=== PATIENT | female | born 1950 | race Caucasian/White ===

== ENCOUNTER 2017-03-21 10:57 | Emergency (ER) | payer MEDICARE ==
[~2017-03-21] VITALS: Wt 68.0 kg
[~2017-03-21 10:57] MED LIST: ANTIFUNGAL; ASPI-COR81 M1; ASPIRIN81 M1 PO; BACTRIM DS 8001 TA1 PO; BENADRYL; CLONIDINE0.1 MG; ENTERIC ASPIRI325 MG; IMDUR30 MG PO; ISOSORBIDE DINI30 MG PO; K-TAB ER8 MEQ PO; LISINOPRIL/HCTZ1 TAB; LISINOPRIL2.5 MG; LISINOPRIL5 MG PO; MAALOX 225 MG/360 ML PO; MICRO-K EXTENCA8 MEQ PO; Motrin,Rufen800 MG PO; NITROSTAT0.4 MG SL; NKHM; PEPCID20 MG PO; PLAVIX75 M1 PO; POTASSIUM20 MEQ; PRILOSEC; PRILOSEC20 M2 PO; PRILOSEC20 MG PO; SIMVASTATIN20 MG; SIMVASTATIN5 MG; SIMVASTATIN5 MG PO; VICODIN 500 MG-1 TAB PO
[2017-03-21 11:23] LABS: BASO % 0.3 % (0.0-1.0); EOS % 0.5 % (1.0-4.0); HEMATOCRIT 41.4 % (37.0-47.0); HEMOGLOBIN 14.2 g/dl (12.0-16.0); LYMPH # 1.5 10*3/uL (1.3-4.4); LYMPH % 20.7 % (27.0-41.0); MEAN CORPUSCULAR HGB 31.6 pg (27.0-31.0); MEAN CORPUSCULAR HGB CONC 34.3 g/dl (33.0-37.0); MEAN PLATELET VOLUME 10.3 fl (9.6-12.3); MONO # 0.6 10*3/uL (0.1-1.0); MONO % 7.5 % (3.0-9.0); NEUT # 5.2 10*3/uL (2.3-7.9); NEUT % 70.7 % (47.0-73.0); PLATELET COUNT AUTOMATED 267 10*3/uL (130-400); RED CELL DISTRI WIDTH 12.3 % (0-14.5); WHITE BLOOD COUNT 7.4 10*3/uL (4.8-10.8)
[2017-03-21 11:39] LABS: ALBUMIN 3.8 gm/dl (3.1-4.5); ALKALINE PHOSPHATASE 98 U/L (45-117); BUN 14 mg/dl (7-24); CHLORIDE 109 mmol/L (98-107); CREATININE 0.74 mg/dL (0.55-1.02); LIPASE 137 U/L (73-393); POTASSIUM 3.9 mmol/L (3.5-5.1); SGOT/AST 31 IU/L (3-35); SGPT/ALT 27 U/L (12-78); SODIUM 142 mmol/L (136-145); TOTAL PROTEIN 6.9 gm/dL (6.4-8.2)
[2017-03-21 11:48] LABS: BILIRUBIN NEGATIVE (NEGATIVE); BLOOD TRACE-LYSED (NEGATIVE); CLARITY SL CLOUDY (CLEAR); COLOR YELLOW (YELLOW); GLUCOSE NEGATIVE (NEGATIVE); KETONE NEGATIVE (NEGATIVE); LEUKO ESTERASE TRACE (NEGATIVE); NITRITE POSITIVE (NEGATIVE); SPECIFIC GRAVITY <= 1.005 (1.005-1.030); UROBILINOGEN 0.2 E.U./dl (0.2-1.0)
[2017-03-21 11:56] LABS: BACTERIA 2+
[2017-03-21 12:16] VITALS: BP 158/74
[2017-03-21] MEDS ORDERED: ZOFRAN ODT4 MG SL (12:23)
[2017-03-21] MEDS ORDERED: AMINOPHYLLIN200 MG PO (12:23)
== END 2017-03-21 12:44 | disposition home or self-care (01) ==
LOC: ED 10:57
PROVIDERS: Physician Assistant
DX: N30.00 Acute cystitis without hematuria (principal); K52.9 Noninfective gastroenteritis and colitis, unspecified; F17.200 Nicotine dependence, unspecified, uncomplicated; Z98.890 Other specified postprocedural states; Z88.8 Allergy status to other drugs, medicaments and biological substances; Z79.82 Long term (current) use of aspirin; Z79.899 Other long term (current) drug therapy; Z90.49 Acquired absence of other specified parts of digestive tract

== ENCOUNTER 2017-12-22 16:38 | Emergency (ER) | payer OTHER ==
[~2017-12-22] VITALS: Ht 165.1 cm; Wt 68.0 kg
[2017-12-22 16:38] VITALS: BP 170/68
[~2017-12-22 16:38] MED LIST changes: +AMINOPHYLLIN200 MG PO; +ZOFRAN ODT4 MG SL
[2017-12-22] MEDS ORDERED: CYCLOBENZAPRINE10 MG PO (18:02)
[2017-12-22] MEDS ORDERED: MEDROL DOSEPAK4 MG PO (18:02)
== END 2017-12-22 18:15 | disposition home or self-care (01) ==
LOC: ED 16:38
DX: M54.2 Cervicalgia (principal); M43.6 Torticollis; F17.200 Nicotine dependence, unspecified, uncomplicated; Z88.8 Allergy status to other drugs, medicaments and biological substances; Z79.82 Long term (current) use of aspirin; Z79.899 Other long term (current) drug therapy

== ENCOUNTER 2018-03-12 17:15 | Emergency (ER) | payer OTHER ==
[2018-03-12 17:15] VITALS: BP 160/81
[~2018-03-12 17:15] MED LIST changes: +CYCLOBENZAPRINE10 MG PO; +MEDROL DOSEPAK4 MG PO
[2018-03-12 18:08] LABS: BASO % 0.3 % (0.0-1.0); EOS % 0.3 % (1.0-4.0); HEMATOCRIT 43.2 % (37.0-47.0); HEMOGLOBIN 14.8 g/dl (12.0-16.0); LYMPH # 1.3 10*3/uL (1.3-4.4); LYMPH % 18.5 % (27.0-41.0); MEAN CELL VOLUME 93.5 fl (81.0-99.0); MEAN CORPUSCULAR HGB CONC 34.3 g/dl (33.0-37.0); MEAN PLATELET VOLUME 10.7 fl (9.6-12.3); MONO # 0.4 10*3/uL (0.1-1.0); MONO % 5.1 % (3.0-9.0); NEUT # 5.2 10*3/uL (2.3-7.9); NEUT % 75.5 % (47.0-73.0); PLATELET COUNT AUTOMATED 254 10*3/uL (130-400); RED BLOOD COUNT 4.62 10*6/uL (4.10-5.10); RED CELL DISTRI WIDTH 12.7 % (0-14.5); WHITE BLOOD COUNT 6.9 10*3/uL (4.8-10.8)
[2018-03-12 18:18] LABS: ALBUMIN 3.3 gm/dl (3.1-4.5); ALKALINE PHOSPHATASE 87 U/L (45-117); BUN 18 mg/dl (7-24); CHLORIDE 109 mmol/L (98-107); CREATININE 0.73 mg/dL (0.55-1.02); LIPASE 68 U/L (73-393); POTASSIUM 3.1 mmol/L (3.5-5.1); SGOT/AST 16 IU/L (3-35); SGPT/ALT 22 U/L (12-78); SODIUM 141 mmol/L (136-145); TOTAL PROTEIN 6.4 gm/dL (6.4-8.2)
[2018-03-12 18:49] LABS: BILIRUBIN NEGATIVE (NEGATIVE); BLOOD TRACE-INTACT (NEGATIVE); CLARITY CLOUDY (CLEAR); COLOR YELLOW (YELLOW); GLUCOSE NEGATIVE (NEGATIVE); KETONE NEGATIVE (NEGATIVE); LEUKO ESTERASE 2+ (NEGATIVE); NITRITE POSITIVE (NEGATIVE); SPECIFIC GRAVITY 1.025 (1.005-1.030); UROBILINOGEN 0.2 E.U./dl (0.2-1.0)
[2018-03-12 18:56] LABS: BACTERIA 4+; MUCOUS TRACE; WBC TNTC wbc/hpf (0-5)
[2018-03-12] MEDS ORDERED: AMINOPHYLLIN200 MG PO (19:04)
[2018-03-12] MEDS ORDERED: ZOFRAN4 MG PO (19:04)
== END 2018-03-12 19:06 | disposition home or self-care (01) ==
LOC: ED 17:15
PROVIDERS: Nurse Practitioner Family
DX: A08.4 Viral intestinal infection, unspecified (principal); N39.0 Urinary tract infection, site not specified; I10 Essential (primary) hypertension; Z88.8 Allergy status to other drugs, medicaments and biological substances; Z79.899 Other long term (current) drug therapy; Z90.710 Acquired absence of both cervix and uterus

== ENCOUNTER 2019-02-10 08:17 | Inpatient (IN) | payer OTHER ==
[~2019-02-10] VITALS: Ht 165.1 cm; Wt 74.6 kg
[~2019-02-10 08:17] MED LIST changes: +ZOFRAN4 MG PO
[2019-02-10 08:19] VITALS: BP 167/77
[2019-02-10 09:21] LABS: BASO % 0.3 % (0.0-1.0); EOS # 0.1 10*3/uL (0.0-0.4); EOS % 1.6 % (1.0-4.0); HEMATOCRIT 34.5 % (37.0-47.0); HEMOGLOBIN 11.2 g/dl (12.0-16.0); LYMPH # 0.7 10*3/uL (1.3-4.4); LYMPH % 8.8 % (27.0-41.0); MEAN CELL VOLUME 89.4 fl (81.0-99.0); MEAN CORPUSCULAR HGB CONC 32.5 g/dl (33.0-37.0); MEAN PLATELET VOLUME 10.7 fl (9.6-12.3); MONO # 0.4 10*3/uL (0.1-1.0); MONO % 4.9 % (3.0-9.0); NEUT # 6.4 10*3/uL (2.3-7.9); NEUT % 84.1 % (47.0-73.0); PLATELET COUNT AUTOMATED 266 10*3/uL (130-400); RED BLOOD COUNT 3.86 10*6/uL (4.10-5.10); RED CELL DISTRI WIDTH 14.2 % (0-14.5); WHITE BLOOD COUNT 7.6 10*3/uL (4.8-10.8)
--- NOTE | 2019-02-10 09:31 | NUR ---
PT IS DRINKING WATER WITHOUT VOMITING. ATTEMPTING TO PROVIDE A URINE SAMPLE. ASTRID COMER
[2019-02-10 09:36] LABS: ACT PARTIAL THROMBO TIME 25.2 SECONDS (20.0-32.1)
[2019-02-10 09:38] LABS: ALBUMIN 3.3 gm/dl (3.1-4.5); ALKALINE PHOSPHATASE 87 U/L (45-117); BUN 15 mg/dl (7-24); CHLORIDE 113 mmol/L (98-107); LIPASE 69 U/L (73-393); POTASSIUM 3.4 mmol/L (3.5-5.1); SGOT/AST 21 IU/L (3-35); SGPT/ALT 17 U/L (12-78); SODIUM 142 mmol/L (136-145); TOTAL PROTEIN 6.5 gm/dL (6.4-8.2)
--- NOTE | 2019-02-10 11:59 | NUR ---
THERE HAS BEEN NO VOMITING SINCE PT ARRIVED TO ED. SHE REMAINS AWAKE AND ALERT. BM X1 SINCE ED ARRIVAL. ASTRID COMER
--- NOTE | 2019-02-10 12:52 | NUR ---
NO FURTHER BOWEL MOVEMENTS OR EMESIS. THERE HAS BEEN NO CO ABDOMINAL PAIN. IV FLUID IS COMPLETE. ASTRID COMER
--- NOTE | 2019-02-10 13:20 | NUR ---
Time: 0 A 68 year old FEMALE admitted to 5E under services of SHUKRI FORD DO. Pt. arrived via bed from ER. Chief complaint: NAUSEA/VOMITING/DIARRHEA/ABDOMINAL PAIN. SUSANNE KING
[2019-02-10 13:30] VITALS: BP 145/62
[2019-02-10] MEDS ORDERED: BENADRYL ALLERG25 M5 PO (13:48)
[2019-02-10] MEDS ORDERED: GARLIC1 EAC1 PO (13:48)
[2019-02-10] MEDS ORDERED: IBU-200200 MG PO (13:49)
[2019-02-10] MEDS ORDERED: CO Q-1010 M2 PO (13:49)
--- NOTE | 2019-02-10 14:22 | NUR ---
NOITIFIED DR. HERRERA THAT PATIENT TAKES BENADRYL 25MG EVERYDAY FOR ALLERGIES "TO BREATH" AND IBUPROFEN 800MG TID IF SHE NEEDS IT. HE STATED HE HELD THE MOTRIN, BUT 25MG OF BENADRYL IS FINE
[2019-02-10 15:35] LABS: BILIRUBIN NEGATIVE (NEGATIVE); BLOOD TRACE-INTACT (NEGATIVE); CLARITY SL CLOUDY (CLEAR); COLOR YELLOW (YELLOW); GLUCOSE NEGATIVE (NEGATIVE); KETONE NEGATIVE (NEGATIVE); LEUKO ESTERASE NEGATIVE (NEGATIVE); NITRITE POSITIVE (NEGATIVE); SPECIFIC GRAVITY 1.015 (1.005-1.030); UROBILINOGEN 0.2 E.U./dl (0.2-1.0)
[2019-02-10 15:41] LABS: BACTERIA 2+; MUCOUS 1+; RBC 0-2 rbc/hpf (0-2)
[2019-02-10 16:00] VITALS: BP 124/66
[2019-02-10 20:00] VITALS: BP 154/68
[2019-02-11] VITALS: BP 150/64
--- NOTE | 2019-02-11 02:58 | NUR ---
24 HOUR CHART CHECK COMPLETED
[2019-02-11 05:59] LABS: BASO % 0.3 % (0.0-1.0); EOS # 0.1 10*3/uL (0.0-0.4); EOS % 1.5 % (1.0-4.0); HEMATOCRIT 32.4 % (37.0-47.0); HEMOGLOBIN 10.1 g/dl (12.0-16.0); LYMPH # 1.6 10*3/uL (1.3-4.4); LYMPH % 49.8 % (27.0-41.0); MEAN CELL VOLUME 90.3 fl (81.0-99.0); MEAN CORPUSCULAR HGB 28.1 pg (27.0-31.0); MEAN CORPUSCULAR HGB CONC 31.2 g/dl (33.0-37.0); MEAN PLATELET VOLUME 10.8 fl (9.6-12.3); MONO # 0.5 10*3/uL (0.1-1.0); MONO % 15.2 % (3.0-9.0); NEUT # 1.1 10*3/uL (2.3-7.9); NEUT % 33.2 % (47.0-73.0); PLATELET COUNT AUTOMATED 232 10*3/uL (130-400); RED BLOOD COUNT 3.59 10*6/uL (4.10-5.10); RED CELL DISTRI WIDTH 14.1 % (0-14.5); WHITE BLOOD COUNT 3.2 10*3/uL (4.8-10.8)
[2019-02-11 06:08] LABS: ACT PARTIAL THROMBO TIME 27.5 SECONDS (20.0-32.1)
[2019-02-11 06:17] LABS: ALBUMIN 2.9 gm/dl (3.1-4.5); ALKALINE PHOSPHATASE 79 U/L (45-117); BUN 7 mg/dl (7-24); CHLORIDE 116 mmol/L (98-107); CHOLESTEROL 141 mg/dL (<200); CREATININE 0.64 mg/dL (0.55-1.02); HDL CHOLESTEROL 36 mg/dl (40-60); LDL CHOLESTEROL 87 mg/dL (9-159); PHOSPHOROUS 2.7 mg/dL (2.5-4.9); POTASSIUM 3.3 mmol/L (3.5-5.1); SGOT/AST 17 IU/L (3-35); SGPT/ALT 17 U/L (12-78); SODIUM 141 mmol/L (136-145); TOTAL PROTEIN 5.6 gm/dL (6.4-8.2); TRIGLYCERIDES 90 mg/dl (<150); VLDL CHOLESTEROL 18 mg/dL (6-40)
[2019-02-11 06:23] LABS: FREE T4 0.81 ng/dl (0.76-1.46)
--- NOTE | 2019-02-11 07:53 | NUR ---
VITALS STABLE. VIOLET. A&OX3. EQUAL SUPERVISOR GROUNDS. PLEASANT. HEART SOUNDS NORMAL. LUNGS CLEAR THROUGHOUT. ACTIVE BS X4, NON TENDER, NON DISTENDED. SKIN PINK WARM AND DRY, <3 CAP REFILL, SKIN TURGUR NON TENTING. PT STATED "STOOL IS MORE FORMED TODAY". IV PATENT IN LEFT HAND, DRESSING DRY AND INTACT, NO REDNESS OR SWELLING AT THE SITE. PT HAS NO COMPLAINTS OF PAIN AT THIS TIME. WILL CONTINUE TO ASSESS. PRASHANTH JIMENEZCC
[2019-02-11 08:00] VITALS: BP 156/78
--- NOTE | 2019-02-11 08:06 | NUR ---
pt sitting up in bed. no distress noted. will monitor
[2019-02-11 08:32] LABS: VITAMIN D, 25-HYDROXY 20.7 ng/mL (30-100)
--- NOTE | 2019-02-11 09:55 | NUR ---
PT RESTING QUIETLY WITH EYES CLOSED. WILL CONTINUE TO ASSESS. CHRISTINE FRANK, ANGELICANRCC
[2019-02-11] MEDS ORDERED: CIPRO500 MG PO (10:16)
--- NOTE | 2019-02-11 10:53 | NUR ---
Discharge instructions reviewed with patient/family. Patient receptive and verbalizes understanding. Follow-up care arranged. Written instructions given to patient/family. [place] removed. Discharged via wheelchair to taxi in ER lot. Condition stable. RHINA Aguilar KATHY P
== END 2019-02-11 10:53 | disposition home or self-care (01) | DRG 392 ==
LOC: ED 08:17 → EDHOLD 12:36 → 5E 12:48
PROVIDERS: Emergency Medicine; Hospitalist; ADMIT Internal Medicine
DX: R19.7 Diarrhea, unspecified (principal); N39.0 Urinary tract infection, site not specified; D64.9 Anemia, unspecified; E87.6 Hypokalemia; E87.8 Other disorders of electrolyte and fluid balance, not elsewhere classified; I10 Essential (primary) hypertension; Z96.641 Presence of right artificial hip joint; E78.5 Hyperlipidemia, unspecified; K21.9 Gastro-esophageal reflux disease without esophagitis; F17.200 Nicotine dependence, unspecified, uncomplicated; I25.10 Atherosclerotic heart disease of native coronary artery without angina pectoris; Z86.73 Personal history of transient ischemic attack (TIA), and cerebral infarction without residual deficits; Z88.8 Allergy status to other drugs, medicaments and biological substances; Z87.440 Personal history of urinary (tract) infections; Z98.891 History of uterine scar from previous surgery; Z83.3 Family history of diabetes mellitus; Z82.49 Family history of ischemic heart disease and other diseases of the circulatory system; Z82.3 Family history of stroke; I25.2 Old myocardial infarction; Z79.899 Other long term (current) drug therapy

== ENCOUNTER 2019-02-18 06:15 | Inpatient (IN) | payer OTHER ==
[2019-02-18] VITALS (10 sets, daily range): BP systolic 124–170; BP diastolic 58–107
[~2019-02-18] VITALS: Ht 165.1 cm; Wt 71.9 kg
[~2019-02-18 06:15] MED LIST changes: +BENADRYL ALLERG25 M5 PO; +CIPRO500 MG PO; +CO Q-1010 M2 PO; +GARLIC1 EAC1 PO; +IBU-200200 MG PO
[2019-02-18 06:45] LABS: BASO % 0.4 % (0.0-1.0); EOS # 0.1 10*3/uL (0.0-0.4); EOS % 1.2 % (1.0-4.0); HEMATOCRIT 37.1 % (37.0-47.0); HEMOGLOBIN 12.2 g/dl (12.0-16.0); LYMPH # 3.8 10*3/uL (1.3-4.4); LYMPH % 37.8 % (27.0-41.0); MEAN CELL VOLUME 86.7 fl (81.0-99.0); MEAN CORPUSCULAR HGB 28.5 pg (27.0-31.0); MEAN CORPUSCULAR HGB CONC 32.9 g/dl (33.0-37.0); MEAN PLATELET VOLUME 11.2 fl (9.6-12.3); MONO # 0.6 10*3/uL (0.1-1.0); MONO % 6.2 % (3.0-9.0); NEUT # 5.4 10*3/uL (2.3-7.9); NEUT % 54.2 % (47.0-73.0); PLATELET COUNT AUTOMATED 311 10*3/uL (130-400); RED BLOOD COUNT 4.28 10*6/uL (4.10-5.10); RED CELL DISTRI WIDTH 13.9 % (0-14.5)
[2019-02-18 06:50] LABS: ACT PARTIAL THROMBO TIME 25.1 SECONDS (20.0-32.1)
[2019-02-18 07:01] LABS: ALBUMIN 3.6 gm/dl (3.1-4.5); ALKALINE PHOSPHATASE 102 U/L (45-117); BUN 9 mg/dl (7-24); CHLORIDE 111 mmol/L (98-107); CREATININE 0.71 mg/dL (0.55-1.02); POTASSIUM 3.2 mmol/L (3.5-5.1); SGOT/AST 19 IU/L (3-35); SGPT/ALT 23 U/L (12-78); SODIUM 141 mmol/L (136-145); TOTAL PROTEIN 7.1 gm/dL (6.4-8.2)
[2019-02-18 07:03] LABS: TROPONIN I 0.072 ng/ml (<0.045)
--- NOTE | 2019-02-18 08:46 | NUR ---
ASSISTED TO BEDSIDE COMMODE.
--- NOTE | 2019-02-18 09:18 | NUR ---
TROP 0.161 DR REILLY NOTIFIED
--- NOTE | 2019-02-18 10:15 | NUR ---
CCA 68, admitted to , under the services of SARAH Cortes DO with a diagnosis of CHEST PAIN. Chief complaint is CHEST PAIN. Patient arrived via ambulance from ER. Monitor applied. Initial assessment completed. Vital signs taken and recorded. SARAH CORTES DO notified of admission to the unit. Orders received. See assessment for past medical history, medications and allergies. Patient and/or family oriented to unit. [address] visitation policy reviewed. Clothing/patient valuable form completed. LUANN DUKES.
--- NOTE | 2019-02-18 12:00 | NUR ---
CALLED REGARDING ADMISSION ORDERS AND WILL BE IN TO SEE THE PATIENT.
--- NOTE | 2019-02-18 12:42 | NUR ---
Dr. Salazar notified of elevated troponin of 2.29. States this pt is not on his list. But he would accept consult. Spoke with Dr. Downs and order received. Pt does not currently see any marriage counselor.
--- NOTE | 2019-02-18 12:50 | NUR ---
Attempted to call EKG for stat EKG. No answer at this time.
--- NOTE | 2019-02-18 13:07 | NUR ---
WC was able to reach EKG for stat EKG.
--- NOTE | 2019-02-18 13:26 | NUR ---
ON FLOOR AND WILL BE IN TO SEE THE PATIENT.
--- NOTE | 2019-02-18 16:09 | NUR ---
ASSUMED CARE OF PATIENT. PT STATES NO NEEDS AT THIS TIME
--- NOTE | 2019-02-18 19:17 | NUR ---
ASSUMED CARE OF PT AT THIS TIME. PT AWAKE IN BED. DENIES ANY CP. NO OTHER COMPLAINTS VOICED. WILL MONITOR. CALL LIGHT IN REACH.
--- NOTE | 2019-02-18 20:14 | NUR ---
HERE TO REVIEW EKGs. DISCUSSED PT'S ELEVATED TROPONINS. PT DENIES CP AT PRESENT TIME. PER , POSSIBLE TRANSFER FOR HEART CATH. WILL CONTINUE TO MONITOR PT.
--- NOTE | 2019-02-18 20:30 | NUR ---
SHIFT ASSESSMENT COMPLETE AT THIS TIME. PT STATES "A HEART DOCTOR" WAS IN TODAY AND SAID SHE WOULD BE TRANSFERRED TO [facility] FOR A HEART CATH. PATIENT STATES "I AIN'T SUZANNE." RN TRIED TO EDUCATE PT AND ENCOURAGE PT TO ACCEPT CARDIOLOGY'S RECOMMENDATIONS. PT STATES "I'LL HAVE A STRESS TEST HERE, BUT I'M NOT GOING TO [facility] FOR A HEART CATH."
--- NOTE | 2019-02-18 21:54 | NUR ---
PT IS C/O "A GAS BUBBLE" SITTING AT THE "TOP OF HER BELLY." RN ASKED PT TO FURTHER DESCRIBE PAIN/DISCOMFORT. PATIENT REPLIED QUICKLY "I DON'T NEED TO EXPLAIN IT JUST GIVE ME SOMETHING FOR GAS." STATES SHE WANTS "GAS-X, TUMS, WHATEVER." RN ASKED PT IF IT FEELS LIKE CHEST PAIN. PT REPLIED "IT'S NOT CHEST PAIN, IT'S GAS. IT FEELS NOTHING LIKE IT DID LAST NIGHT/THIS MORNING." NOTIFIED. NEW ORDERS RECEIVED. ALSO AWARE THAT 2200 DOSE OF METOPROLOL 12.5MG HELD DUE TO HR IN LOW 50S PER CM.
--- NOTE | 2019-02-18 22:08 | NUR ---
PT MEDICATED WITH PO TUMS FOR C/O GAS & INDIGESTION. WILL MONITOR EFFECTIVENESS. CALL LIGHT IN REACH.
--- NOTE | 2019-02-18 23:16 | NUR ---
EARLIER MEDICATIONS APPEAR EFFECTIVE. PT SLEEPING IN BED. RESPIRATIONS EASY. NO S/S OF DISTRESS NOTED. WILL MONITOR. CALL LIGHT LEFT IN REACH.
[2019-02-18 23:18] LABS: BILIRUBIN NEGATIVE (NEGATIVE); BLOOD NEGATIVE (NEGATIVE); CLARITY SL CLOUDY (CLEAR); COLOR YELLOW (YELLOW); GLUCOSE NEGATIVE (NEGATIVE); KETONE NEGATIVE (NEGATIVE); LEUKO ESTERASE TRACE (NEGATIVE); NITRITE NEGATIVE (NEGATIVE); PH 6.5 (5.0-9.0); UROBILINOGEN 0.2 E.U./dl (0.2-1.0)
[2019-02-18 23:28] LABS: BACTERIA 1+; MUCOUS 1+
[2019-02-19] VITALS (12 sets, daily range): BP systolic 107–164; BP diastolic 50–88
--- NOTE | 2019-02-19 02:00 | NUR ---
PT ASLEEP IN BED. RESPIRATIONS EASY. NO S/S OF DISTRESS NOTED. WILL MONITOR. CALL LIGHT IN REACH.
--- NOTE | 2019-02-19 03:46 | NUR ---
PT C/O "GAS BUBBLE" AGAIN. PO TUMS ADMINISTERED PER PRN ORDER. BP ELEVATED AT 164/80 MANUALLY. NOTIFIED. EKG ORDERED. REVIEWED. PT DENIES ANY NEW/WORSENING SYMPTOMS. WILL CONTINUE TO MONITOR. CALL LIGHT IN REACH.
--- NOTE | 2019-02-19 04:06 | NUR ---
EARLIER MEDICATIONS APPEAR EFFECTIVE. PT ASLEEP IN BED. RESPIRATIONS EASY. NO S/S OF DISTRESS NOTED. WILL MONITOR. CALL LIGHT IN REACH.
[2019-02-19 06:41] LABS: BASO % 0.4 % (0.0-1.0); EOS % 0.4 % (1.0-4.0); HEMATOCRIT 33.5 % (37.0-47.0); HEMOGLOBIN 10.7 g/dl (12.0-16.0); LYMPH # 3.1 10*3/uL (1.3-4.4); LYMPH % 32.9 % (27.0-41.0); MEAN CORPUSCULAR HGB 27.8 pg (27.0-31.0); MEAN CORPUSCULAR HGB CONC 31.9 g/dl (33.0-37.0); MEAN PLATELET VOLUME 11.3 fl (9.6-12.3); MONO # 0.8 10*3/uL (0.1-1.0); MONO % 8.1 % (3.0-9.0); NEUT # 5.4 10*3/uL (2.3-7.9); PLATELET COUNT AUTOMATED 297 10*3/uL (130-400); RED BLOOD COUNT 3.85 10*6/uL (4.10-5.10); RED CELL DISTRI WIDTH 14.1 % (0-14.5); WHITE BLOOD COUNT 9.3 10*3/uL (4.8-10.8)
[2019-02-19 06:54] LABS: ALBUMIN 3.2 gm/dl (3.1-4.5); BUN 13 mg/dl (7-24); CHLORIDE 111 mmol/L (98-107); POTASSIUM 3.9 mmol/L (3.5-5.1); SODIUM 141 mmol/L (136-145)
[2019-02-19 07:03] LABS: ALKALINE PHOSPHATASE 104 U/L (45-117); CREATININE 0.73 mg/dL (0.55-1.02); PHOSPHOROUS 2.7 mg/dL (2.5-4.9); SGOT/AST 118 IU/L (3-35); SGPT/ALT 61 U/L (12-78); TOTAL PROTEIN 6.3 gm/dL (6.4-8.2)
--- NOTE | 2019-02-19 07:40 | NUR ---
PT RESTING IN BED WITH EYES CLOSED, AWAKENS EASILY. RESP-EASY AND REGULAR. CALL LIGHT IN REACH. SEE SHIFT ASSESSMENT.
--- NOTE | 2019-02-19 09:00 | NUR ---
Bit Tripoler in to talk to patient. Patient states lives at home with son. There are few steps in the home. Physician: amirah Pharmacy: [facility] [place] [facility]: none Patient's level of ADLs: INDEPENDENT Patient has working utilities: all working DME: none Follow-up physician's appointment after d/c: will be made by hospitalist nurse director upon discharge Does patient want to access PORTAL?: no Discharge plan discussed with patient, she lives at home with her son, she is independent in adls and ambulation, she states she will be returning home when medically stable and denies any home needs. KAMERON ESPINOSA
--- NOTE | 2019-02-19 09:00 | NUR ---
PT C/O EPIGASTRIC PAIN, GAS BUBBLES PER PT. ALSO C/O CONSTIPATION. MEDICATED WITH DUCOLAX PO AND TUMS PER EMAR. HR-44-52. CALL LIGHT IN REACH. WILL CON'T TO MONITOR.L
--- NOTE | 2019-02-19 09:05 | NUR ---
CALLED DR. HU MADE AWARE PT BP156/84 WITH HR-44-52. ALSO C/O GAS BUBBLES AND CONSTIPATION.
--- NOTE | 2019-02-19 09:10 | NUR ---
CALLED DR. HU AGAIN REGARDING PT C/O CHEST PAIN AT THIS TIME. STAT EKG ORDERED. DR. HU CAME TO FLOOR. BP 144/72, HR-40'S-50'S. OXYGEN APPLIED.
--- NOTE | 2019-02-19 09:14 | NUR ---
DR. HU CALLED DR. ORNELAS MADE AWARE CHEST PAIN, TRANSFER TO ICU.
--- NOTE | 2019-02-19 09:25 | NUR ---
PT TRANSFERRED TO ICU REPORT GIVEN TO RN. OXYGEN IN USE.
--- NOTE | 2019-02-19 09:30 | NUR ---
PATIENT RECEIVED FROM FOR MIDSTERNAL CHEST PAIN. PATIENT KEEPS SAYING "OH MY GOD". BLOOD PRESSURE 156/84. POX 98% RA. NITRO GTT STARTED.
--- NOTE | 2019-02-19 09:48 | NUR ---
PATIENT CONTINUES TO C/O CHEST PAIN. NITRO GTT INCREASED TO 20MIC.
--- NOTE | 2019-02-19 09:50 | NUR ---
PATIENT C/O NAUSEA. MEDICATED WITH ZOFRAN PER PRN ORDER. WILL CONTINUE TO MONITOR.
--- NOTE | 2019-02-19 10:00 | NUR ---
patient condition worsened, she was transferred to CCU and will be transferred to [facility] for heart cath,
--- NOTE | 2019-02-19 10:05 | NUR ---
PATIENT CONTINUES TO C/O MIDSTERNAL CP. RATE 12/13. NITRO GTT INCREASED TO 30MIC.
--- NOTE | 2019-02-19 10:27 | NUR ---
PATIENT CONTINUES TO C/O CHEST PAIN. RATE 10/10 ON PAIN SCALE. PATIENT MOANING. NITRO GTT INCREASED TO 40MIC.
--- NOTE | 2019-02-19 10:36 | NUR ---
PATIENT CONTINUES TO C/O CHEST PAIN. RATE 10/10 ON PAIN SCALE. NITRO GTT INCREASED TO 50MIC.
[2019-02-19] MEDS ORDERED: AMLODIPINE BESYL5 MG PO (10:37)
[2019-02-19] MEDS ORDERED: ATORVASTATIN CA40 M1 PO (10:37)
[2019-02-19] MEDS ORDERED: ASPIRIN ADULT L81 M2 PO (10:37)
[2019-02-19] MEDS ORDERED: LOPRESSOR25 MG PO (10:37)
--- NOTE | 2019-02-19 10:57 | NUR ---
ECHO CANCELLED, BEING TRANSFERRED OUT.
--- NOTE | 2019-02-19 11:07 | NUR ---
PATIENT CONTINUES TO MOAN IN PAIN. MIDSTERNAL CHEST PAIN CONTINUING. AT BEDSIDE. NEW ORDER RECEIVED TO START IVF OF NS AT 50CC/HR AND GIVE THE MORPHINE. MEDICATED WITH MORPHINE SULFATE 2MG IV PER PRN ORDER. WILL CONTINUE TO MONITOR.
--- NOTE | 2019-02-19 11:30 | NUR ---
PATIENT RESTING WITH EYES CLOSED AT THIS TIME.
--- NOTE | 2019-02-19 11:48 | NUR ---
[facility] HERE TO TRANSFER PATIENT TO [facility] TE[facility]. ALL PERSONAL BELONGINGS SENT WITH PATIENT. PATIENT REQUESTED TO LEAVE HER PHONE HERE TO GIVE TO HER SON WHEN HE SHOWS UP. TRANSFER PACKET GIVEN TO [facility]ANCE [facility]W. REPORT GIVEN TO LARR[facility] IN [facility]LASTIC [facility]YE TECHN[facility]IAN.
== END 2019-02-19 11:48 | disposition short-term general hospital (02) | DRG 282 ==
LOC: ED 06:15 → EDHOLD 09:00 → 4E 09:00 → ICCU 09:00 → 4E 09:34 → ICCU 02-19 09:37
PROVIDERS: Emergency Medicine; Hospitalist; ADMIT Internal Medicine
DX: I21.4 Non-ST elevation (NSTEMI) myocardial infarction (principal); K21.9 Gastro-esophageal reflux disease without esophagitis; I25.10 Atherosclerotic heart disease of native coronary artery without angina pectoris; E78.5 Hyperlipidemia, unspecified; I10 Essential (primary) hypertension; Z96.641 Presence of right artificial hip joint; E87.6 Hypokalemia; E87.8 Other disorders of electrolyte and fluid balance, not elsewhere classified; I48.91 Unspecified atrial fibrillation; R73.9 Hyperglycemia, unspecified; I44.7 Left bundle-branch block, unspecified; F17.210 Nicotine dependence, cigarettes, uncomplicated; Z82.49 Family history of ischemic heart disease and other diseases of the circulatory system; Z88.8 Allergy status to other drugs, medicaments and biological substances; I25.2 Old myocardial infarction; Z86.73 Personal history of transient ischemic attack (TIA), and cerebral infarction without residual deficits; Z79.899 Other long term (current) drug therapy

== ENCOUNTER → 2019-04-18 | Outpatient (CLI) | payer OTHER ==
[~2019-04-18] MED LIST changes: +AMLODIPINE BESYL5 MG PO; +ASPIRIN ADULT L81 M2 PO; +ATORVASTATIN CA40 M1 PO; +LOPRESSOR25 MG PO
--- NOTE | 2019-04-18 11:06 | NUR ---
SPEECH PATHOLOGY Outpatient MBS completed as per orders to determine candidacy to resume oral feeding. Medical history includes postprocedural respiratory failure with intubation, s/p tracheostomy, GERD, CVA, HTN, A-fib, [place]. Patient has been extubated. She is NPO and fed by PEG tube. She is anxious to resume oral feeding and admitted to "cheating" and eating occasional foods which she reported having no difficulty with. Patient was alert and cooperative with respiratory status WNL. Oral peripheral exam revealed few natural teeth. Lingual/labial and buccal skills were WNL in terms of strength, ROM and coordination. She was assessed with puree, solid and thin liquid. Oral and pharyngeal swallowing skills were WNL across all consistencies. There were no oral difficulties and there was no penetration, aspiration or residue. Recommend patient resume oral feeding with a regular diet and thin liquid. Recommend use of universal safe swallow precautions. Continued therapy services are recommended at the alf to ensure safe tolerance of diet. Results and roe. were shared with patient and a written copy was sent for education of alf staff. Dictated report to follow. Thank you for this referral. KARIN FERNANDEZ MSCCC-SUPERVISOR FORMING AND TEMPERING
== END | disposition home or self-care (01) ==
LOC: RAD/SH 10:01
DX: R13.10 Dysphagia, unspecified (principal)

== ENCOUNTER 2019-04-26 14:10 | Emergency (ER) | payer OTHER ==
[~2019-04-26] VITALS: Ht 165.1 cm; Wt 67.6 kg
[2019-04-26 14:21] VITALS: BP 148/64
[2019-04-26 15:07] LABS: BASO # 0.1 10*3/uL (0.0-0.1); BASO % 0.5 % (0.0-1.0); EOS # 0.6 10*3/uL (0.0-0.4); EOS % 5.9 % (1.0-4.0); HEMATOCRIT 34.2 % (37.0-47.0); HEMOGLOBIN 10.7 g/dl (12.0-16.0); LYMPH # 3.4 10*3/uL (1.3-4.4); LYMPH % 33.1 % (27.0-41.0); MEAN CELL VOLUME 89.8 fl (81.0-99.0); MEAN CORPUSCULAR HGB 28.1 pg (27.0-31.0); MEAN CORPUSCULAR HGB CONC 31.3 g/dl (33.0-37.0); MEAN PLATELET VOLUME 10.9 fl (9.6-12.3); MONO # 0.6 10*3/uL (0.1-1.0); MONO % 5.9 % (3.0-9.0); NEUT # 5.6 10*3/uL (2.3-7.9); NEUT % 54.3 % (47.0-73.0); PLATELET COUNT AUTOMATED 327 10*3/uL (130-400); RED BLOOD COUNT 3.81 10*6/uL (4.10-5.10); RED CELL DISTRI WIDTH 19.8 % (0-14.5); WHITE BLOOD COUNT 10.4 10*3/uL (4.8-10.8)
[2019-04-26 15:19] LABS: ACT PARTIAL THROMBO TIME 28.3 SECONDS (20.0-32.1); INTERNATIONAL NORM RATIO 1.1 (2.0-3.5)
[2019-04-26 15:24] LABS: ALBUMIN 3.5 gm/dl (3.1-4.5); ALKALINE PHOSPHATASE 130 U/L (45-117); BUN 17 mg/dl (7-24); CHLORIDE 108 mmol/L (98-107); POTASSIUM 3.7 mmol/L (3.5-5.1); SGOT/AST 36 IU/L (3-35); SGPT/ALT 44 U/L (12-78); SODIUM 141 mmol/L (136-145); TOTAL PROTEIN 6.8 gm/dL (6.4-8.2)
== END 2019-04-26 17:40 | disposition home or self-care (01) ==
LOC: ED 14:10
PROVIDERS: Internal Medicine
DX: K94.23 Gastrostomy malfunction (principal); R11.2 Nausea with vomiting, unspecified; R10.9 Unspecified abdominal pain; I25.10 Atherosclerotic heart disease of native coronary artery without angina pectoris; K21.9 Gastro-esophageal reflux disease without esophagitis; I10 Essential (primary) hypertension; I25.2 Old myocardial infarction; E78.00 Pure hypercholesterolemia, unspecified; I48.91 Unspecified atrial fibrillation; F17.200 Nicotine dependence, unspecified, uncomplicated; Z86.73 Personal history of transient ischemic attack (TIA), and cerebral infarction without residual deficits; Z95.0 Presence of cardiac pacemaker; Z88.8 Allergy status to other drugs, medicaments and biological substances; Z79.899 Other long term (current) drug therapy; Z79.82 Long term (current) use of aspirin; Z98.61 Coronary angioplasty status; Y83.8 Other surgical procedures as the cause of abnormal reaction of the patient, or of later complication, without mention of misadventure at the time of the procedure; Y82.8 Other medical devices associated with adverse incidents

== ENCOUNTER → 2020-08-25 | Outpatient (CLI) | payer OTHER | END | disposition home or self-care (01) | LOC: CARD 14:00 | PROVIDERS: ATTEND Internal Medicine Cardiovascular Disease | DX: I08.3 Combined rheumatic disorders of mitral, aortic and tricuspid valves (principal); I10 Essential (primary) hypertension; Z95.1 Presence of aortocoronary bypass graft; Z86.79 Personal history of other diseases of the circulatory system; Z79.899 Other long term (current) drug therapy ==

== ENCOUNTER 2021-10-19 15:25 | Emergency (ER) | payer OTHER ==
[~2021-10-19] VITALS: Wt 69.4 kg
[2021-10-19 15:31] VITALS: BP 148/74
[2021-10-19] MEDS ORDERED: LICE KILLING S118 ML T (15:46)
[2021-10-19] MEDS ORDERED: ELIMITE 5%60 GM T (15:46)
== END 2021-10-19 16:05 | disposition home or self-care (01) ==
LOC: ED 15:25
DX: B85.2 Pediculosis, unspecified (principal); F17.210 Nicotine dependence, cigarettes, uncomplicated; Z88.8 Allergy status to other drugs, medicaments and biological substances; Z79.899 Other long term (current) drug therapy; Z79.82 Long term (current) use of aspirin; Z98.890 Other specified postprocedural states; Z96.641 Presence of right artificial hip joint

== ENCOUNTER 2023-04-01 01:07 | Inpatient (IN) | payer OTHER ==
[2023-04-01] VITALS (8 sets, daily range): BP systolic 94–162; BP diastolic 58–78
[~2023-04-01] VITALS: Ht 165.1 cm; Wt 70.6 kg
[~2023-04-01 01:07] MED LIST changes: +CLOPIDOGREL75 MG PO; +ELIMITE 5%60 GM T; +IMDUR SA30 MG PO; +IRON325 M1 PO; +LICE KILLING S118 ML T
[2023-04-01 01:42] LABS: BASO # 0.1 10*3/uL (0.0-0.1); BASO % 1.2 % (0.0-1.0); EOS # 0.1 10*3/uL (0.0-0.4); EOS % 1.6 % (1.0-4.0); HEMATOCRIT 38.6 % (37.0-47.0); LYMPH # 3.6 10*3/uL (1.3-4.4); LYMPH % 44.1 % (27.0-41.0); MEAN CELL VOLUME 82.3 fl (81.0-99.0); MEAN CORPUSCULAR HGB 25.8 pg (27.0-31.0); MEAN CORPUSCULAR HGB CONC 31.3 g/dl (33.0-37.0); MEAN PLATELET VOLUME 11.1 fl (9.6-12.3); MONO # 0.5 10*3/uL (0.1-1.0); MONO % 5.8 % (3.0-9.0); NEUT # 3.9 10*3/uL (2.3-7.9); NEUT % 47.2 % (47.0-73.0); PLATELET COUNT AUTOMATED 301 10*3/uL (130-400); RED BLOOD COUNT 4.69 10*6/uL (4.10-5.10); RED CELL DISTRI WIDTH 21.2 % (0-14.5); WHITE BLOOD COUNT 8.2 10*3/uL (4.8-10.8)
[2023-04-01 01:52] LABS: ACT PARTIAL THROMBO TIME 26.1 SECONDS (20.0-32.1)
[2023-04-01 02:02] LABS: ALKALINE PHOSPHATASE 90 U/L (46-116); BUN 13 mg/dl (9-23); CHLORIDE 112 mmol/L (98-107); LIPASE 28 U/L (12-53); POTASSIUM 3.3 mmol/L (3.4-5.1); SGPT/ALT 8 U/L (5-49); TOTAL PROTEIN 6.7 gm/dL (6.0-8.0)
[2023-04-01 07:50] LABS: BASO % 0.6 % (0.0-1.0); EOS # 0.1 10*3/uL (0.0-0.4); EOS % 0.9 % (1.0-4.0); HEMATOCRIT 34.9 % (37.0-47.0); LYMPH # 1.8 10*3/uL (1.3-4.4); LYMPH % 25.4 % (27.0-41.0); MEAN CELL VOLUME 84.1 fl (81.0-99.0); MEAN CORPUSCULAR HGB CONC 30.9 g/dl (33.0-37.0); MEAN PLATELET VOLUME 11.9 fl (9.6-12.3); MONO # 0.4 10*3/uL (0.1-1.0); MONO % 5.8 % (3.0-9.0); NEUT # 4.7 10*3/uL (2.3-7.9); PLATELET COUNT AUTOMATED 254 10*3/uL (130-400); RED BLOOD COUNT 4.15 10*6/uL (4.10-5.10); RED CELL DISTRI WIDTH 21.2 % (0-14.5); WHITE BLOOD COUNT 7.1 10*3/uL (4.8-10.8)
[2023-04-01 08:14] LABS: BUN 13 mg/dl (9-23); CHLORIDE 112 mmol/L (98-107); POTASSIUM 3.9 mmol/L (3.4-5.1)
[2023-04-01] MEDS ORDERED: IBU800 M2 PO (09:42)
[2023-04-02] VITALS: BP 148/74
[2023-04-02 02:04] LABS: BILIRUBIN Negative (Negative); BLOOD Negative (Negative); CLARITY Clear (Clear); COLOR Yellow (Yellow); GLUCOSE Negative (Negative); KETONE Negative (Negative); NITRITE Negative (Negative); PH 6.5 (4.5-8.0); SPECIFIC GRAVITY <= 1.005 (1.001-1.030); UROBILINOGEN 0.2 E.U./dl (0.0-1.0)
[2023-04-02 02:17] LABS: LEUKO ESTERASE Trace (Negative); RBC 0-2 rbc/hpf (0-2); WBC 16-20 wbc/hpf (0-5)
[2023-04-02 02:18] LABS: BACTERIA 2+
[2023-04-02 05:58] LABS: BUN 14 mg/dl (9-23); CHLORIDE 112 mmol/L (98-107); POTASSIUM 3.5 mmol/L (3.4-5.1)
[2023-04-02 06:04] LABS: BASO # 0.1 10*3/uL (0.0-0.1); BASO % 0.8 % (0.0-1.0); EOS # 0.2 10*3/uL (0.0-0.4); EOS % 2.4 % (1.0-4.0); HEMATOCRIT 36.5 % (37.0-47.0); LYMPH # 3.2 10*3/uL (1.3-4.4); LYMPH % 42.8 % (27.0-41.0); MEAN CELL VOLUME 81.8 fl (81.0-99.0); MEAN CORPUSCULAR HGB 25.3 pg (27.0-31.0); MEAN PLATELET VOLUME 11.9 fl (9.6-12.3); MONO # 0.5 10*3/uL (0.1-1.0); MONO % 7.1 % (3.0-9.0); NEUT # 3.5 10*3/uL (2.3-7.9); NEUT % 46.8 % (47.0-73.0); PLATELET COUNT AUTOMATED 280 10*3/uL (130-400); RED BLOOD COUNT 4.46 10*6/uL (4.10-5.10); RED CELL DISTRI WIDTH 21.2 % (0-14.5); WHITE BLOOD COUNT 7.6 10*3/uL (4.8-10.8)
[2023-04-02 08:00] VITALS: BP 158/72
[2023-04-02 12:00] VITALS: BP 128/73
[2023-04-02 16:00] VITALS: BP 151/60
[2023-04-02 20:00] VITALS: BP 153/66
[2023-04-03] VITALS: BP 153/55
[2023-04-03 06:09] LABS: BUN 11 mg/dl (9-23); CHLORIDE 109 mmol/L (98-107); POTASSIUM 3.6 mmol/L (3.4-5.1)
[2023-04-03 06:16] LABS: BASO # 0.1 10*3/uL (0.0-0.1); BASO % 0.8 % (0.0-1.0); EOS # 0.2 10*3/uL (0.0-0.4); EOS % 3.7 % (1.0-4.0); HEMATOCRIT 36.1 % (37.0-47.0); LYMPH # 2.5 10*3/uL (1.3-4.4); LYMPH % 41.5 % (27.0-41.0); MEAN CELL VOLUME 81.5 fl (81.0-99.0); MEAN CORPUSCULAR HGB 25.7 pg (27.0-31.0); MEAN CORPUSCULAR HGB CONC 31.6 g/dl (33.0-37.0); MEAN PLATELET VOLUME 12.1 fl (9.6-12.3); MONO # 0.6 10*3/uL (0.1-1.0); MONO % 9.2 % (3.0-9.0); NEUT # 2.7 10*3/uL (2.3-7.9); NEUT % 44.6 % (47.0-73.0); PLATELET COUNT AUTOMATED 275 10*3/uL (130-400); RED BLOOD COUNT 4.43 10*6/uL (4.10-5.10)
[2023-04-03 08:00] VITALS: BP 157/89
[2023-04-03] MEDS ORDERED: ATORVASTATIN CA80 M1 PO (11:13)
[2023-04-03] MEDS ORDERED: IMDUR SA30 MG PO (11:13)
[2023-04-03] MEDS ORDERED: CLOPIDOGREL75 MG PO (11:13)
[2023-04-03] MEDS ORDERED: LISINOPRIL5 MG PO (11:13)
[2023-04-03] MEDS ORDERED: LOPRESSOR25 MG PO (11:13)
[2023-04-03 12:00] VITALS: BP 159/70
== END 2023-04-03 14:02 | disposition home or self-care (01) | DRG 281 ==
LOC: ED 01:07 → EDHOLD 04:53 → 4E 04:53
PROVIDERS: Internal Medicine; Student in an Organized Health Care Education/Training Program; ADMIT Student in an Organized Health Care Education/Training Program; ATTEND Student in an Organized Health Care Education/Training Program
PROC: 0HBRXZZ Excision of Toe Nail, External Approach (ICD-10-PCS; principal; 2023-04-02)
PROC: 0HBRXZZ Excision of Toe Nail, External Approach (ICD-10-PCS; 2023-04-02)
PROC: 0HBRXZZ Excision of Toe Nail, External Approach (ICD-10-PCS; 2023-04-02)
PROC: 0HBRXZZ Excision of Toe Nail, External Approach (ICD-10-PCS; 2023-04-02)
PROC: 0HBRXZZ Excision of Toe Nail, External Approach (ICD-10-PCS; 2023-04-02)
PROC: 0HBRXZZ Excision of Toe Nail, External Approach (ICD-10-PCS; 2023-04-02)
DX: I21.4 Non-ST elevation (NSTEMI) myocardial infarction (principal); R65.10 Systemic inflammatory response syndrome (SIRS) of non-infectious origin without acute organ dysfunction; B88.8 Other specified infestations; F17.210 Nicotine dependence, cigarettes, uncomplicated; E87.8 Other disorders of electrolyte and fluid balance, not elsewhere classified; R73.9 Hyperglycemia, unspecified; I95.9 Hypotension, unspecified; B35.1 Tinea unguium; Z96.641 Presence of right artificial hip joint; I11.9 Hypertensive heart disease without heart failure; E87.6 Hypokalemia; J44.9 Chronic obstructive pulmonary disease, unspecified; K21.00 Gastro-esophageal reflux disease with esophagitis, without bleeding; I25.10 Atherosclerotic heart disease of native coronary artery without angina pectoris; E78.5 Hyperlipidemia, unspecified; I48.91 Unspecified atrial fibrillation; Z86.19 Personal history of other infectious and parasitic diseases; Z95.1 Presence of aortocoronary bypass graft; Z86.73 Personal history of transient ischemic attack (TIA), and cerebral infarction without residual deficits; Z98.891 History of uterine scar from previous surgery; Z88.1 Allergy status to other antibiotic agents; Z88.8 Allergy status to other drugs, medicaments and biological substances; Z82.49 Family history of ischemic heart disease and other diseases of the circulatory system; Z79.82 Long term (current) use of aspirin; Z79.899 Other long term (current) drug therapy; Z95.0 Presence of cardiac pacemaker; Z91.198 Patient's noncompliance with other medical treatment and regimen for other reason

== ENCOUNTER 2023-09-26 13:05 | Emergency (ER) | payer OTHER ==
[~2023-09-26] VITALS: Ht 165.1 cm; Wt 74.2 kg
[~2023-09-26 13:05] MED LIST changes: +AMIODARONE HYD200 MG PO; +ATORVASTATIN CA80 M1 PO; +IBU800 M2 PO
[2023-09-26] MEDS ORDERED: methylPREDNISolone sod succ 125 MG VIAL IV ONE (13:10)
[2023-09-26 13:12] VITALS: BP 96/47
[2023-09-26 14:08] LABS: BASO % 0.2 % (0.0-1.0); EOS # 0.2 10*3/uL (0.0-0.4); EOS % 1.8 % (1.0-4.0); HEMATOCRIT 35.9 % (37.0-47.0); LYMPH # 2.1 10*3/uL (1.3-4.4); LYMPH % 15.8 % (27.0-41.0); MEAN CORPUSCULAR HGB 29.3 pg (27.0-31.0); MEAN CORPUSCULAR HGB CONC 31.2 g/dl (33.0-37.0); MEAN PLATELET VOLUME 12.5 fl (9.6-12.3); MONO # 1.2 10*3/uL (0.1-1.0); MONO % 9.4 % (3.0-9.0); NEUT # 9.5 10*3/uL (2.3-7.9); NEUT % 72.3 % (47.0-73.0); PLATELET COUNT AUTOMATED 202 10*3/uL (130-400); RED BLOOD COUNT 3.82 10*6/uL (4.10-5.10); RED CELL DISTRI WIDTH 14.9 % (0-14.5); WHITE BLOOD COUNT 13.1 10*3/uL (4.8-10.8)
[2023-09-26 14:29] LABS: ALKALINE PHOSPHATASE 71 U/L (46-116); BUN 9 mg/dl (9-23); CHLORIDE 110 mmol/L (98-107); POTASSIUM 3.9 mmol/L (3.4-5.1); SGPT/ALT 13 U/L (5-49); TOTAL PROTEIN 5.5 gm/dL (6.0-8.0)
== END 2023-09-26 16:47 | disposition home or self-care (01) ==
LOC: ED 13:05
PROVIDERS: Internal Medicine
DX: R06.02 Shortness of breath (principal); I25.2 Old myocardial infarction; Z88.8 Allergy status to other drugs, medicaments and biological substances; Z79.899 Other long term (current) drug therapy; Z79.82 Long term (current) use of aspirin; Z98.890 Other specified postprocedural states; Z96.641 Presence of right artificial hip joint; Z53.29 Procedure and treatment not carried out because of patient's decision for other reasons

== ENCOUNTER 2023-10-10 14:54 | Emergency (ER) | payer OTHER ==
[2023-10-10 15:09] VITALS: BP 125/61
[2023-10-10 16:10] LABS: BASO # 0.1 10*3/uL (0.0-0.1); BASO % 0.9 % (0.0-1.0); EOS # 0.3 10*3/uL (0.0-0.4); EOS % 5.6 % (1.0-4.0); HEMATOCRIT 35.5 % (37.0-47.0); LYMPH # 1.4 10*3/uL (1.3-4.4); LYMPH % 25.1 % (27.0-41.0); MEAN CELL VOLUME 93.2 fl (81.0-99.0); MEAN CORPUSCULAR HGB 29.7 pg (27.0-31.0); MEAN CORPUSCULAR HGB CONC 31.8 g/dl (33.0-37.0); MEAN PLATELET VOLUME 11.7 fl (9.6-12.3); MONO # 0.5 10*3/uL (0.1-1.0); MONO % 8.1 % (3.0-9.0); NEUT # 3.3 10*3/uL (2.3-7.9); NEUT % 60.1 % (47.0-73.0); PLATELET COUNT AUTOMATED 240 10*3/uL (130-400); RED BLOOD COUNT 3.81 10*6/uL (4.10-5.10); RED CELL DISTRI WIDTH 16.5 % (0-14.5); WHITE BLOOD COUNT 5.5 10*3/uL (4.8-10.8)
[2023-10-10 16:25] LABS: BUN 16 mg/dl (9-23); CHLORIDE 111 mmol/L (98-107); POTASSIUM 3.1 mmol/L (3.4-5.1)
== END 2023-10-10 16:52 | disposition home or self-care (01) ==
LOC: ED 14:54
PROVIDERS: Internal Medicine
DX: Z48.01 Encounter for change or removal of surgical wound dressing (principal); R22.0 Localized swelling, mass and lump, head; I25.2 Old myocardial infarction; F17.200 Nicotine dependence, unspecified, uncomplicated; Z95.0 Presence of cardiac pacemaker; Z88.8 Allergy status to other drugs, medicaments and biological substances; Z79.899 Other long term (current) drug therapy; Z79.82 Long term (current) use of aspirin; Z96.641 Presence of right artificial hip joint; Z98.890 Other specified postprocedural states

== ENCOUNTER 2023-11-14 18:50 | Inpatient (IN) | payer OTHER ==
[~2023-11-14] VITALS: Ht 165.1 cm; Wt 65.9 kg
[2023-11-14 18:59] VITALS: BP 141/71
[2023-11-14 19:28] LABS: BASO % 0.6 % (0.0-1.0); EOS # 0.2 10*3/uL (0.0-0.4); EOS % 2.4 % (1.0-4.0); HEMATOCRIT 34.4 % (37.0-47.0); LYMPH # 1.4 10*3/uL (1.3-4.4); LYMPH % 19.1 % (27.0-41.0); MEAN CELL VOLUME 94.5 fl (81.0-99.0); MEAN CORPUSCULAR HGB 30.2 pg (27.0-31.0); MEAN PLATELET VOLUME 11.7 fl (9.6-12.3); MONO # 0.5 10*3/uL (0.1-1.0); MONO % 7.3 % (3.0-9.0); NEUT % 70.3 % (47.0-73.0); PLATELET COUNT AUTOMATED 222 10*3/uL (130-400); RED BLOOD COUNT 3.64 10*6/uL (4.10-5.10); RED CELL DISTRI WIDTH 16.1 % (0-14.5); WHITE BLOOD COUNT 7.1 10*3/uL (4.8-10.8)
[2023-11-14 19:53] LABS: ALKALINE PHOSPHATASE 75 U/L (46-116); BUN 13 mg/dl (9-23); CHLORIDE 111 mmol/L (98-107); SGPT/ALT 21 U/L (5-49); TOTAL PROTEIN 6.1 gm/dL (6.0-8.0)
[2023-11-14] MEDS ORDERED: POTASSIUM CHLORIDE 20 MEQ TAB PO ONE (22:20)
[2023-11-14 22:22] VITALS: BP 122/73
[2023-11-14] MEDS ORDERED: MORPHINE Sulfate 2 MG/ML SYR IV PRN (23:40)
[2023-11-14] MEDS ORDERED: ACETAMINOPHEN 650 MG SUPP R PRN (23:40)
[2023-11-14] MEDS ORDERED: BISACODYL 5 MG TAB PO PRN (23:40)
[2023-11-14] MEDS ORDERED: Acetaminophen/Hydrocodone 5 MG/325 MG TABLET PO PRN (23:40)
[2023-11-14] MEDS ORDERED: TEMAZEPAM 15 MG CAP PO PRN (23:40)
[2023-11-14] MEDS ORDERED: ACETAMINOPHEN 325 MG TAB PO PRN (23:40)
[2023-11-14] MEDS ORDERED: Magnesium Hydroxide 30 ML UDC PO PRN (23:40)
[2023-11-14] MEDS ORDERED: BISACODYL 10 MG SUPP R PRN (23:40)
[2023-11-15] MEDS ORDERED: Metoprolol Tartrate 25 MG TAB PO SCH ×2 (00:55→10:00)
[2023-11-15] MEDS ORDERED: Clopidogrel Hydrogen Sulfate 75 MG TAB PO ONE (00:55)
[2023-11-15] MEDS ORDERED: ASPIRIN 325 MG TAB PO ONE (00:55)
[2023-11-15] MEDS ORDERED: ATORVASTATIN CALCIUM 80 MG TAB PO ONE ×2 (00:55→06:10)
[2023-11-15 05:50] VITALS: BP 147/61
[2023-11-15] MEDS ORDERED: Pantoprazole Sodium 40 MG TAB PO SCH (06:00)
[2023-11-15 06:49] LABS: BASO % 0.4 % (0.0-1.0); EOS # 0.3 10*3/uL (0.0-0.4); EOS % 4.3 % (1.0-4.0); HEMATOCRIT 32.5 % (37.0-47.0); LYMPH % 27.8 % (27.0-41.0); MEAN CELL VOLUME 92.6 fl (81.0-99.0); MEAN CORPUSCULAR HGB 30.2 pg (27.0-31.0); MEAN CORPUSCULAR HGB CONC 32.6 g/dl (33.0-37.0); MEAN PLATELET VOLUME 12.1 fl (9.6-12.3); MONO # 0.6 10*3/uL (0.1-1.0); NEUT # 4.3 10*3/uL (2.3-7.9); NEUT % 59.4 % (47.0-73.0); PLATELET COUNT AUTOMATED 204 10*3/uL (130-400); RED BLOOD COUNT 3.51 10*6/uL (4.10-5.10); RED CELL DISTRI WIDTH 16.4 % (0-14.5); WHITE BLOOD COUNT 7.2 10*3/uL (4.8-10.8)
[2023-11-15 07:33] LABS: ALKALINE PHOSPHATASE 70 U/L (46-116); BUN 12 mg/dl (9-23); CHLORIDE 112 mmol/L (98-107); CHOLESTEROL 122 mg/dL (<200); FREE T4 1.19 ng/dl (0.89-1.76); LDL CHOLESTEROL 63 mg/dL (9-159); POTASSIUM 3.3 mmol/L (3.4-5.1); SGPT/ALT 18 U/L (5-49); TOTAL PROTEIN 5.5 gm/dL (6.0-8.0); TRIGLYCERIDES 67 mg/dl (<150)
[2023-11-15 08:00] VITALS: BP 151/67
[2023-11-15] MEDS ORDERED: Clopidogrel Hydrogen Sulfate 75 MG TAB PO SCH (10:00)
[2023-11-15] MEDS ORDERED: Enoxaparin Sodium 40 MG/0.4 ML SYR SC SCH (10:00)
[2023-11-15] MEDS ORDERED: LISINOPRIL 5 MG TAB PO SCH (10:00)
[2023-11-15] MEDS ORDERED: ASPIRIN ENTERIC COATED 81 MG TAB PO SCH (10:00)
[2023-11-15] MEDS ORDERED: Amiodarone Hydrochloride 200 MG TAB PO SCH (10:00)
[2023-11-15] MEDS ORDERED: ISOSORBIDE MONONITRATE 30 MG TAB PO SCH ×2 (10:00)
[2023-11-15 11:30] VITALS: BP 138/65
[2023-11-15 16:00] VITALS: BP 151/72
[2023-11-15 20:00] VITALS: BP 157/88
[2023-11-16] VITALS: BP 152/73
[2023-11-16 06:59] LABS: BASO % 0.5 % (0.0-1.0); EOS # 0.3 10*3/uL (0.0-0.4); EOS % 4.5 % (1.0-4.0); LYMPH # 1.6 10*3/uL (1.3-4.4); LYMPH % 24.2 % (27.0-41.0); MEAN CELL VOLUME 94.2 fl (81.0-99.0); MEAN CORPUSCULAR HGB 30.2 pg (27.0-31.0); MEAN CORPUSCULAR HGB CONC 32.1 g/dl (33.0-37.0); MONO # 0.5 10*3/uL (0.1-1.0); NEUT # 4.1 10*3/uL (2.3-7.9); NEUT % 62.6 % (47.0-73.0); PLATELET COUNT AUTOMATED 207 10*3/uL (130-400); RED BLOOD COUNT 3.61 10*6/uL (4.10-5.10); RED CELL DISTRI WIDTH 16.1 % (0-14.5); WHITE BLOOD COUNT 6.6 10*3/uL (4.8-10.8)
[2023-11-16 07:26] LABS: BUN 12 mg/dl (9-23); CHLORIDE 111 mmol/L (98-107); POTASSIUM 3.6 mmol/L (3.4-5.1)
[2023-11-16 08:00] VITALS: BP 169/81
[2023-11-16] MEDS ORDERED: Ketorolac Tromethamine 15 MG/ML VIAL IV ONE (09:50)
[2023-11-16] MEDS ORDERED: Meclizine Hydrochloride 25 MG TAB PO ONE (09:55)
[2023-11-16] MEDS ORDERED: Vitamin D 1,000 IU TAB (25 MCG) PO SCH (10:00)
[2023-11-16] MEDS ORDERED: ATORVASTATIN CALCIUM 80 MG TAB PO SCH (10:00)
[2023-11-16 12:00] VITALS: BP 161/67
[2023-11-16] MEDS ORDERED: LISINOPRIL 5 MG TAB PO ONE (12:45)
[2023-11-16 16:00] VITALS: BP 148/77
[2023-11-16 20:00] VITALS: BP 155/85
[2023-11-17] VITALS: BP 144/71
[2023-11-17 08:00] VITALS: BP 151/77
[2023-11-17] MEDS ORDERED: LISINOPRIL 10 MG TAB PO SCH (10:00)
[2023-11-17] MEDS ORDERED: VITAMIN D250 MCG PO (11:25)
[2023-11-17] MEDS ORDERED: LISINOPRIL10 M1 PO (11:25)
[2023-11-17 12:00] VITALS: BP 157/80
== END 2023-11-17 13:20 | disposition home or self-care (01) | DRG 313 ==
LOC: ED 18:50 → EDHOLD 22:45 → 4E 22:45 → EDHOLD 23:45 → 4E 11-15 11:48
PROVIDERS: Internal Medicine; Student in an Organized Health Care Education/Training Program; ADMIT Internal Medicine; ATTEND Internal Medicine
DX: R07.89 Other chest pain (principal); T76.11XA Adult physical abuse, suspected, initial encounter; I24.89 Other forms of acute ischemic heart disease; I50.22 Chronic systolic (congestive) heart failure; I13.0 Hypertensive heart and chronic kidney disease with heart failure and stage 1 through stage 4 chronic kidney disease, or unspecified chronic kidney disease; I25.110 Atherosclerotic heart disease of native coronary artery with unstable angina pectoris; E87.6 Hypokalemia; F41.1 Generalized anxiety disorder; K21.9 Gastro-esophageal reflux disease without esophagitis; J44.9 Chronic obstructive pulmonary disease, unspecified; Z96.641 Presence of right artificial hip joint; F17.210 Nicotine dependence, cigarettes, uncomplicated; F43.0 Acute stress reaction; I48.0 Paroxysmal atrial fibrillation; D64.9 Anemia, unspecified; N18.31 Chronic kidney disease, stage 3a; Z88.8 Allergy status to other drugs, medicaments and biological substances; Z82.49 Family history of ischemic heart disease and other diseases of the circulatory system; Z95.5 Presence of coronary angioplasty implant and graft; Z86.73 Personal history of transient ischemic attack (TIA), and cerebral infarction without residual deficits; Z45.02 Encounter for adjustment and management of automatic implantable cardiac defibrillator; Z95.810 Presence of automatic (implantable) cardiac defibrillator; Z98.891 History of uterine scar from previous surgery; Z71.6 Tobacco abuse counseling

== ENCOUNTER 2023-11-18 12:03 | Emergency (ER) | payer OTHER ==
[~2023-11-18] VITALS: Ht 165.1 cm; Wt 63.5 kg
[~2023-11-18 12:03] MED LIST changes: +LISINOPRIL10 M1 PO; +VITAMIN D250 MCG PO
[2023-11-18 12:14] VITALS: BP 133/64
[2023-11-18 12:55] LABS: BASO # 0.1 10*3/uL (0.0-0.1); BASO % 0.7 % (0.0-1.0); EOS # 0.2 10*3/uL (0.0-0.4); EOS % 2.4 % (1.0-4.0); HEMATOCRIT 34.2 % (37.0-47.0); LYMPH # 1.3 10*3/uL (1.3-4.4); LYMPH % 18.6 % (27.0-41.0); MEAN CORPUSCULAR HGB 30.8 pg (27.0-31.0); MEAN CORPUSCULAR HGB CONC 32.7 g/dl (33.0-37.0); MEAN PLATELET VOLUME 12.2 fl (9.6-12.3); MONO # 0.5 10*3/uL (0.1-1.0); MONO % 7.3 % (3.0-9.0); NEUT # 4.9 10*3/uL (2.3-7.9); NEUT % 70.7 % (47.0-73.0); PLATELET COUNT AUTOMATED 213 10*3/uL (130-400); RED BLOOD COUNT 3.64 10*6/uL (4.10-5.10); RED CELL DISTRI WIDTH 16.1 % (0-14.5)
[2023-11-18 13:06] LABS: BUN 14 mg/dl (9-23); CHLORIDE 110 mmol/L (98-107); POTASSIUM 3.6 mmol/L (3.4-5.1)
== END 2023-11-18 14:00 | disposition home or self-care (01) ==
LOC: ED 12:03
PROVIDERS: Nurse Practitioner Family
DX: R42 Dizziness and giddiness (principal); I10 Essential (primary) hypertension; Z86.73 Personal history of transient ischemic attack (TIA), and cerebral infarction without residual deficits; K21.9 Gastro-esophageal reflux disease without esophagitis; E78.00 Pure hypercholesterolemia, unspecified; F17.290 Nicotine dependence, other tobacco product, uncomplicated; Z88.8 Allergy status to other drugs, medicaments and biological substances; Z98.890 Other specified postprocedural states

== ENCOUNTER 2023-11-23 11:26 | Observation (INO) | payer OTHER ==
[~2023-11-23] VITALS: Ht 165.1 cm; Wt 58.1 kg
[2023-11-23 11:46] VITALS: BP 151/81
[2023-11-23 12:20] LABS: BASO # 0.1 10*3/uL (0.0-0.1); BASO % 0.8 % (0.0-1.0); EOS % 0.5 % (1.0-4.0); HEMATOCRIT 35.7 % (37.0-47.0); LYMPH # 1.2 10*3/uL (1.3-4.4); LYMPH % 18.1 % (27.0-41.0); MEAN CELL VOLUME 93.5 fl (81.0-99.0); MEAN CORPUSCULAR HGB 30.4 pg (27.0-31.0); MEAN CORPUSCULAR HGB CONC 32.5 g/dl (33.0-37.0); MEAN PLATELET VOLUME 11.6 fl (9.6-12.3); MONO # 0.4 10*3/uL (0.1-1.0); MONO % 6.1 % (3.0-9.0); NEUT # 4.8 10*3/uL (2.3-7.9); NEUT % 74.3 % (47.0-73.0); PLATELET COUNT AUTOMATED 243 10*3/uL (130-400); RED BLOOD COUNT 3.82 10*6/uL (4.10-5.10); RED CELL DISTRI WIDTH 15.6 % (0-14.5); WHITE BLOOD COUNT 6.4 10*3/uL (4.8-10.8)
[2023-11-23 12:31] LABS: ACT PARTIAL THROMBO TIME 25.8 SECONDS (20.0-32.1)
[2023-11-23 12:43] LABS: ALKALINE PHOSPHATASE 87 U/L (46-116); BUN 16 mg/dl (9-23); CHLORIDE 110 mmol/L (98-107); POTASSIUM 3.3 mmol/L (3.4-5.1); SGPT/ALT 18 U/L (5-49); TOTAL PROTEIN 6.2 gm/dL (6.0-8.0)
[2023-11-23] MEDS ORDERED: POTASSIUM CHLORIDE 20 MEQ TAB PO ONE (12:55)
[2023-11-23 15:00] VITALS: BP 145/62
[2023-11-23] MEDS ORDERED: MORPHINE Sulfate 2 MG/ML SYR IV PRN (15:00)
[2023-11-23] MEDS ORDERED: BISACODYL 10 MG SUPP R PRN (15:00)
[2023-11-23] MEDS ORDERED: ACETAMINOPHEN 325 MG TAB PO PRN (15:00)
[2023-11-23] MEDS ORDERED: BISACODYL 5 MG TAB PO PRN (15:00)
[2023-11-23] MEDS ORDERED: Magnesium Hydroxide 30 ML UDC PO PRN (15:00)
[2023-11-23] MEDS ORDERED: Ondansetron Hydrochloride 4 MG/2 ML VIAL IV PRN (15:00)
[2023-11-23] MEDS ORDERED: ACETAMINOPHEN 650 MG SUPP R PRN (15:00)
[2023-11-23 16:00] VITALS: BP 149/74
[2023-11-23] MEDS ORDERED: ATORVASTATIN CA40 M1 PO (16:03)
[2023-11-23 20:00] VITALS: BP 124/65
[2023-11-23] MEDS ORDERED: Metoprolol Tartrate 25 MG TAB PO SCH ×2 (22:00)
[2023-11-24] VITALS: BP 124/75
[2023-11-24 05:58] LABS: BASO # 0.1 10*3/uL (0.0-0.1); BASO % 0.8 % (0.0-1.0); EOS # 0.3 10*3/uL (0.0-0.4); EOS % 4.3 % (1.0-4.0); HEMATOCRIT 36.2 % (37.0-47.0); LYMPH # 2.5 10*3/uL (1.3-4.4); LYMPH % 39.7 % (27.0-41.0); MEAN CELL VOLUME 94.8 fl (81.0-99.0); MEAN CORPUSCULAR HGB 30.4 pg (27.0-31.0); MEAN PLATELET VOLUME 12.3 fl (9.6-12.3); MONO # 0.6 10*3/uL (0.1-1.0); MONO % 9.8 % (3.0-9.0); NEUT # 2.9 10*3/uL (2.3-7.9); NEUT % 45.2 % (47.0-73.0); PLATELET COUNT AUTOMATED 241 10*3/uL (130-400); RED BLOOD COUNT 3.82 10*6/uL (4.10-5.10); RED CELL DISTRI WIDTH 15.8 % (0-14.5); WHITE BLOOD COUNT 6.3 10*3/uL (4.8-10.8)
[2023-11-24 06:22] LABS: ACT PARTIAL THROMBO TIME 26.5 SECONDS (20.0-32.1)
[2023-11-24 07:30] LABS: ALKALINE PHOSPHATASE 84 U/L (46-116); BUN 17 mg/dl (9-23); CHLORIDE 109 mmol/L (98-107); CHOLESTEROL 124 mg/dL (<200); FREE T4 1.24 ng/dl (0.89-1.76); LDL CHOLESTEROL 68 mg/dL (9-159); SGPT/ALT 16 U/L (5-49); TOTAL PROTEIN 5.8 gm/dL (6.0-8.0); TRIGLYCERIDES 55 mg/dl (<150)
[2023-11-24 07:39] LABS: VITAMIN D, 25-HYDROXY 27.4 ng/mL (30-100)
[2023-11-24 08:00] VITALS: BP 160/80
[2023-11-24] MEDS ORDERED: LISINOPRIL 10 MG TAB PO SCH (10:00)
[2023-11-24] MEDS ORDERED: Cholecalciferol 2,000 UNIT TABLET (50 MCG) PO SCH (10:00)
[2023-11-24] MEDS ORDERED: ASPIRIN ENTERIC COATED 81 MG TAB PO SCH ×2 (10:00)
[2023-11-24] MEDS ORDERED: Enoxaparin Sodium 40 MG/0.4 ML SYR SC SCH (10:00)
[2023-11-24] MEDS ORDERED: Clopidogrel Hydrogen Sulfate 75 MG TAB PO SCH ×2 (10:00)
[2023-11-24] MEDS ORDERED: ISOSORBIDE MONONITRATE 30 MG TAB PO SCH ×2 (10:00)
[2023-11-24] MEDS ORDERED: ATORVASTATIN CALCIUM 80 MG TAB PO SCH (10:00)
[2023-11-24] MEDS ORDERED: Amiodarone Hydrochloride 200 MG TAB PO SCH (10:00)
[2023-11-24 12:00] VITALS: BP 161/89
[2023-11-24] MEDS ORDERED: IOHEXOL 350 MG/ML 100 ML VIAL IV ONE ×2 (12:45→13:02)
[2023-11-24] MEDS ORDERED: SODIUM CHLORIDE 0.9% 100 ML BAG IV ONE (12:45)
[2023-11-24] MEDS ORDERED: SODIUM CHLORIDE 0.9% 100 ML IV ONE (13:02)
[2023-11-24 16:00] VITALS: BP 134/66
[2023-11-24 20:24] VITALS: BP 164/97
[2023-11-25 00:24] VITALS: BP 170/87
[2023-11-25 08:00] VITALS: BP 152/79
[2023-11-25 12:00] VITALS: BP 137/76
[2023-11-25 16:00] VITALS: BP 132/65
[2023-11-25 20:00] VITALS: BP 121/49; BP 156/73
[2023-11-26] VITALS: BP 148/75
[2023-11-26 06:06] LABS: HEMATOCRIT 35.5 % (37.0-47.0); MEAN CELL VOLUME 92.2 fl (81.0-99.0); MEAN CORPUSCULAR HGB 30.1 pg (27.0-31.0); MEAN CORPUSCULAR HGB CONC 32.7 g/dl (33.0-37.0); MEAN PLATELET VOLUME 11.9 fl (9.6-12.3); PLATELET COUNT AUTOMATED 256 10*3/uL (130-400); RED BLOOD COUNT 3.85 10*6/uL (4.10-5.10); RED CELL DISTRI WIDTH 15.3 % (0-14.5); WHITE BLOOD COUNT 5.5 10*3/uL (4.8-10.8)
[2023-11-26 06:12] LABS: MANUAL DIFF REFLEX YES
[2023-11-26 06:45] LABS: BUN 10 mg/dl (9-23); CHLORIDE 108 mmol/L (98-107); POTASSIUM 3.9 mmol/L (3.4-5.1)
[2023-11-26 07:10] LABS: ACANTHOCYTES MODERATE; BASOPHILS 2 % (0-1); BURR CELLS FEW; OVALOCYTES FEW; PLATELET SUFFICIENCY NORMAL (NORMAL); SCHISTOCYTES FEW; TOTAL CELLS COUNTED 100 #CELLS
[2023-11-26 08:00] VITALS: BP 143/70
[2023-11-26 12:00] VITALS: BP 152/84
[2023-11-26 16:00] VITALS: BP 148/74
[2023-11-26 20:00] VITALS: BP 127/67
[2023-11-27] VITALS: BP 124/68
[2023-11-27 06:17] LABS: BUN 15 mg/dl (9-23); CHLORIDE 108 mmol/L (98-107); POTASSIUM 4.3 mmol/L (3.4-5.1)
[2023-11-27 06:25] LABS: BASO # 0.1 10*3/uL (0.0-0.1); BASO % 0.8 % (0.0-1.0); EOS # 0.3 10*3/uL (0.0-0.4); EOS % 4.3 % (1.0-4.0); HEMATOCRIT 35.6 % (37.0-47.0); LYMPH # 2.2 10*3/uL (1.3-4.4); LYMPH % 37.1 % (27.0-41.0); MEAN CELL VOLUME 93.9 fl (81.0-99.0); MEAN CORPUSCULAR HGB 30.3 pg (27.0-31.0); MEAN CORPUSCULAR HGB CONC 32.3 g/dl (33.0-37.0); MEAN PLATELET VOLUME 12.4 fl (9.6-12.3); MONO # 0.5 10*3/uL (0.1-1.0); MONO % 8.7 % (3.0-9.0); NEUT # 2.9 10*3/uL (2.3-7.9); NEUT % 48.8 % (47.0-73.0); PLATELET COUNT AUTOMATED 254 10*3/uL (130-400); RED BLOOD COUNT 3.79 10*6/uL (4.10-5.10); RED CELL DISTRI WIDTH 15.3 % (0-14.5)
[2023-11-27 08:00] VITALS: BP 145/64
[2023-11-27 12:00] VITALS: BP 144/70
== END 2023-11-27 14:18 | disposition home or self-care (01) ==
LOC: ED 11:26 → 4E 14:51 → EDHOLD 14:51 → 4E 15:23
PROVIDERS: Nurse Practitioner; ADMIT Internal Medicine; ATTEND Internal Medicine
DX: R07.89 Other chest pain (principal); R79.89 Other specified abnormal findings of blood chemistry; T74.01XA Adult neglect or abandonment, confirmed, initial encounter; E87.6 Hypokalemia; K21.9 Gastro-esophageal reflux disease without esophagitis; I48.91 Unspecified atrial fibrillation; I13.0 Hypertensive heart and chronic kidney disease with heart failure and stage 1 through stage 4 chronic kidney disease, or unspecified chronic kidney disease; I50.20 Unspecified systolic (congestive) heart failure; E55.9 Vitamin D deficiency, unspecified; N18.31 Chronic kidney disease, stage 3a; N17.0 Acute kidney failure with tubular necrosis; D63.1 Anemia in chronic kidney disease; Y92.89 Other specified places as the place of occurrence of the external cause; Z79.899 Other long term (current) drug therapy

== ENCOUNTER 2024-10-31 21:23 | Emergency (ER) | payer OTHER ==
[~2024-10-31] VITALS: Ht 165.1 cm; Wt 71.2 kg
[~2024-10-31 21:23] MED LIST changes: +AMOXICILLIN500 M3 PO; +ELIQUIS5 M1 PO; +LACTULOSE10 GM/151 PO; +LASIX40 MG PO; +NAMENDA-5 PO; +POTASSIUM CHLO10 ME4 PO; +RIVASTIGMINE1 EACH T
[2024-10-31 21:31] VITALS: BP 153/75
[2024-10-31 21:44] LABS: BASO # 0.1 10*3/uL (0.0-0.1); BASO % 0.8 % (0.0-1.0); EOS # 0.2 10*3/uL (0.0-0.4); EOS % 1.8 % (1.0-4.0); MEAN CELL VOLUME 88.2 fl (81.0-99.0); MEAN CORPUSCULAR HGB 28.1 pg (27.0-31.0); MEAN PLATELET VOLUME 11.1 fl (9.6-12.3); MONO # 0.6 10*3/uL (0.1-1.0); MONO % 7.6 % (3.0-9.0); NEUT # 5.0 10*3/uL (2.3-7.9); NEUT % 60.2 % (47.0-73.0); NUCLEATED RED BLOOD CELL 0.0 % (0.0-0.0); NUCLEATED RED BLOOD CELL 0.0 10*3/uL (0.0-0.0); PLATELET COUNT AUTOMATED 233 10*3/uL (130-400); RED CELL DISTRI WIDTH 17.7 % (0-14.5)
[2024-10-31 22:12] LABS: BUN 16 mg/dl (9-23)
[2024-11-01] MEDS ORDERED: POTASSIUM CHLORIDE 20 MEQ TAB PO ONE (00:15)
[2024-11-01] MEDS ORDERED: MECLIZINE HCL25 M2 PO (00:56)
== END 2024-11-01 01:28 | disposition home or self-care (01) ==
LOC: ED 21:23
PROVIDERS: Internal Medicine
DX: H81.10 Benign paroxysmal vertigo, unspecified ear (principal); E87.6 Hypokalemia; D64.9 Anemia, unspecified; F17.200 Nicotine dependence, unspecified, uncomplicated; Z88.8 Allergy status to other drugs, medicaments and biological substances; Z79.899 Other long term (current) drug therapy; Z79.82 Long term (current) use of aspirin; Z98.61 Coronary angioplasty status; Z96.651 Presence of right artificial knee joint; Z95.810 Presence of automatic (implantable) cardiac defibrillator; Z96.641 Presence of right artificial hip joint